=== PATIENT | female | born 1955 | race Caucasian/White ===

== ENCOUNTER 2018-12-03 10:23 | Observation (INO) ==
[2018-12-03] MEDS ORDERED: Morphine Inj 4 MG/ML Vial IV.PUSH ONE (10:41)
--- NOTE | 2018-12-03 10:48 | ED ---
HPI General Chief Complaint: Chest Pain Stated Complaint: medical Time Seen by Provider: 12/03/18 10:29 Source: patient Mode of arrival: ambulatory Limitations: no limitations History of Present Illness HPI narrative: The patient is a 63-year-old female who presents to the emergency department via private vehicle for chest pain. The patient states she was shopping earlier today when she suddenly developed left-sided chest pain that is described as heaviness, radiating to the left upper extremity , constant, and associated with nausea, diaphoresis, and shortness of breath. The patient states the pain radiates to left upper extremity and is associated with numbness and tingling. She also complains of a mild headache secondary to the chest pain. The patient states the pain has slightly improved since she arrived in the emergency department. The patient denies any history of known coronary artery disease, hypertension, diabetes, or tobacco use. The patient was advised in the past had a medical screening that she has slightly elevated cholesterol, however, was not placed on medications. The patient denies any history of pulmonary embolism or DVT. The patient denies any recent hospitalizations, travel, or surgeries. She does have a history of previous surgery for superficial veins in the right lower extremity and slightly more painful and swollen compared to the right recently. However, she denies any history of DVT. The patient denies any previous cardiac stress testing, however , does not follow-up with a physician regularly. She does have a remote history of ovarian cancer requiring total abdominal hysterectomy but is not receiving yearly mammograms or colonoscopies on schedule. MD complaint: Reports chest pain STEMI Alert: No Onset (ago): minute(s) Duration: constant Onset: during rest Pain location: Reports left chest Severity: severe Severity scale (1-10): 8 Quality: Reports heaviness Pain radiation: Reports LUE Relieving factors: nothing Exacerbating factors: nothing Associated symptoms: Reports nausea, diaphoresis and dyspnea Treatments prior to arrival chest pain: Reports none Related Data On Oral Contraceptives: No Home Medications Medication Instructions Recorded Confirmed No Known Home Medications 12/03/18 12/03/18 Allergies Allergy/AdvReac Type Severity Reaction Status Date / Time codeine Allergy Mild RASH Verified 12/03/18 10:31 *MDRO Multi-Drug Resistant Allergy Intermediate Redness of Uncoded 12/03/18 10: 31 Organism Skin Review of Systems ROS: all other systems reviewed are negative [facility] Medical History Medical History Patient denies medical problems (Acute) Social History Social History Second Hand Smoke Exposure: No Smoking Status: Never smoker How Often Do You Have a Drink Containing Alcohol: Never Recent Travel in [facility] within the Last 8 Weeks: No Recent Out of Country Travel within the Last 8 Weeks: No Immunization History Tetanus Immunization: <5 Years Exam Narrative Exam Narrative: GENERAL: Awake, alert, pleasant 63-year-old female who appears her stated age and appears slightly anxious. SKIN: Focused skin assessment warm/dry. HEAD: Atraumatic. Normocephalic. EYES: Pupils equal and round. No scleral icterus. No injection or drainage. ENT: No nasal bleeding or discharge. Mucous membranes pink and moist. NECK: Trachea midline. No JVD. CARDIOVASCULAR: Regular rate and rhythm. No murmur appreciated. Heart rate in the 90s. RESPIRATORY: No accessory muscle use. Clear to auscultation. Breath sounds equal bilaterally. GASTROINTESTINAL: Abdomen soft, non-tender, nondistended. No rebound tenderness. MUSCULOSKELETAL: No obvious deformities. No clubbing. No cyanosis. No edema. No obvious edema of the left lower extremity compared to the right, however, there are superficial varicosities bilaterally. NEUROLOGICAL: Awake and alert. No obvious cranial nerve deficits. Motor grossly within normal limits. Normal speech. PSYCHIATRIC: Appropriate mood and affect; insight and judgment normal. Course Initial Documented Vital Signs Pulse Rate 111 H 12/03/18 10:25 Respiratory Rate 22 12/03/18 10:25 Blood Pressure 187/87 H 12/03/18 10:25 Pulse Oximetry 95 12/03/18 10:25 Last Documented Vital Signs Temperature 97.7 F 12/03/18 10:27 Pulse Rate 85 12/03/18 12:28 Respiratory Rate 16 12/03/18 12:28 Blood Pressure 152/73 H 12/03/18 10:54 Pulse Oximetry 99 12/03/18 12:28 Clinical Decision Support PERC Rule Age greater than or equal to 50: Yes HR greather than or equal to 100: Yes Sa02 on room air is less than 95%: No Unilateral Leg Swelling: No Hemoptysis: No Recent Surgery or Trauma: No Prior PE or DVT: No Hormone Use: No Medical Decision Making MDM Narrative Medical decision making narrative: IV was established, labs are drawn and sent, and the patient was placed on cardiac telemetry monitoring and continuous pulse oximetry monitoring. EKG was ordered and interpreted. Chest x-ray was obtained. The patient received aspirin, Nitropaste, morphine, Zofran, and IV fluids. D-dimer was sent to lab as the patient's initial heart rate was in the 100s and she is age 63, cannot be ruled out with PERC criteria. She also complains of left lower extremity pain without obvious edema. The patient's d- dimer was negative, therefore, no indication for CT pulmonary angiogram. The patient's initial troponin was negative. Chest x-ray was unremarkable. The patient was reevaluated, her blood pressure had improved to 150s/80s. However, she complained of a persistent headache. I advised the patient her headache might possibly be worse after nitroglycerin was administered, however, she states that it has been persistent despite morphine. Therefore, noncontrast CT the brain was obtained. CT of the brain was negative. The patient will be a 23 -hour observation to the chest pain center for serial cardiac enzymes and further evaluation by cardiology. The patient may benefit from stress test, if negative, outpatient follow-up. Medical Screen Exam Complete: Yes Emergency Medical Condition: Yes Lab Data Result diagrams: 12/03/18 10:50 12/03/18 10:50 Lab Results 12/03/18 12/03/18 12/03/18 Range/Units 10:50 10:50 10:50 WBC 8.9 (4.0-11.0) th/mm3 RBC 4.90 (4.00-5.30) mil/mm3 Hgb 14.8 (11.6-15.3) gm/dL Hct 44.0 (35.0-46.0) % MCV 89.8 (80.0-100.0) fL MCH 30.1 (27.0-34.0) pg MCHC 33.5 (32.0-36.0) % RDW 14.8 (11.6-17.2) % Plt Count 365 (150-450) th/mm3 MPV 7.1 (7.0-11.0) fL Neut % (Auto) 59.1 (16.0-70.0) % Lymph % (Auto) 32.1 (9.0-44.0) % [place] % (Auto) 6.5 (0.0-8.0) % Eos % (Auto) 1.6 (0.0-4.0) % Baso % (Auto) 0.7 (0.0-2.0) % Neut # (Auto) 5.3 (1.8-7.7) th/mm3 Lymph # (Auto) 2.9 (1.0-4.8) th/mm3 [place] # (Auto) 0.6 (0.0-0.9) th/mm3 Eos # (Auto) 0.1 (0.0-0.4) th/mm3 Baso # (Auto) 0.1 (0.0-0.2) th/mm3 WBC Differential . Differential Comment Auto diff final PT 10.0 (9.8-11.6) sec INR 1.0 Ratio APTT 28.9 (23.4-31.7) sec D-Dimer Quant (PE/DVT) 0.35 (0.00-0.50) mg/L FEU Sodium 141 (136-145) meq/L Potassium 4.0 (3.5-5.1) meq/L Chloride 107 (98-107) meq/L Carbon Dioxide 25.5 (21.0-32.0) meq/L Anion Gap 9 (5-15) meq/L BUN 13 (7-18) mg/dL Creatinine 0.94 (0.50-1.00) mg/dL Estimated GFR 60 L (>89) mL/min Random Glucose 122 H (74-106) mg/dL Calcium 8.6 (8.5-10.1) mg/dL Magnesium 2.1 (1.5-2.5) mg/dL Total Bilirubin 0.4 (0.2-1.0) mg/dL AST 18 (15-37) U/L ALT 31 (10-53) U/L Alkaline Phosphatase 60 (45-117) U/L Total Creatine Kinase 107 (26-192) U/L CK-MB (CK-2) Less than 1.0 (0.5-3.6) ng/mL Troponin I Less than 0.02 L (0.02-0.05) ng/mL Total Protein 7.7 (6.4-8.2) g/dL Albumin 3.9 (3.4-5.0) g/dL Lipase 200 (73-393) U/L Imaging Data Radiologist's impression: Chest X-Ray 12/03/18 10:41 CONCLUSION: The lungs are clear. Head CT 12/03/18 12:18 CONCLUSION: No acute intracranial abnormality is identified. . ECG Data EKG Prior to Arrival: No Attestation: I personally reviewed and interpreted this ECG as follows: Interpretation: EKG reveals sinus tachycardia with a heart rate of 106. Q waves in lead III. Nonspecific T wave changes. QTc 399 ms. Discharge Plan Discharge Order Discharge Orders: ED Use Only Admit Order (Routine); Ordered 12/03/18 Ordered By: Marko Lehman Physicians Team ED Provider: Marko Lehman Primary Care Provider: Primary Care Michaeli,Tran Rxs /Orders / Referrals /Forms Prescriptions: No Action No Known Home Medications RF: 0 Discharge Interventions Interventions: Vital Signs Last Done: 12/03/18 10:27 Status ED Status: Admitted Observation Patient
[2018-12-03 11:03] LABS: Baso # (Auto) 0.1 th/mm3 (0.0-0.2); Baso % (Auto) 0.7 % (0.0-2.0); Eos # (Auto) 0.1 th/mm3 (0.0-0.4); Eos % (Auto) 1.6 % (0.0-4.0); Hemoglobin 14.8 gm/dL (11.6-15.3); Lymph # (Auto) 2.9 th/mm3 (1.0-4.8); Lymph % (Auto) 32.1 % (9.0-44.0); Mean Corpuscular HGB Conc 33.5 % (32.0-36.0); Mean Corpuscular Hemoglobin 30.1 pg (27.0-34.0); Mean Corpuscular Volume 89.8 fL (80.0-100.0); Mean Platelet Volume 7.1 fL (7.0-11.0); Mono # (Auto) 0.6 th/mm3 (0.0-0.9); Mono % (Auto) 6.5 % (0.0-8.0); Neut # (Auto) 5.3 th/mm3 (1.8-7.7); Neut % (Auto) 59.1 % (16.0-70.0); Platelet Count 365 th/mm3 (150-450); Red Cell Distribution Width 14.8 % (11.6-17.2); White Blood Count 8.9 th/mm3 (4.0-11.0)
[2018-12-03 11:16] LABS: Activated Partial Thrombo Time 28.9 sec (23.4-31.7); D-Dimer 0.35 mg/L FEU (0.00-0.50)
[2018-12-03 11:31] LABS: Alkaline Phosphatase 60 U/L (45-117); Creatine Kinase 107 U/L (26-192); Total Protein 7.7 g/dL (6.4-8.2)
[2018-12-03 11:35] LABS: Alanine Aminotransferase 31 U/L (10-53); Albumin 3.9 g/dL (3.4-5.0); Anion Gap 9 meq/L (5-15); Aspartate Aminotransferase 18 U/L (15-37); Blood Urea Nitrogen 13 mg/dL (7-18); Calcium 8.6 mg/dL (8.5-10.1); Carbon Dioxide 25.5 meq/L (21.0-32.0); Chloride 107 meq/L (98-107); Glomerular Filtration Rate 60 mL/min (>89); Glucose,Random 122 mg/dL (74-106); Lipase 200 U/L (73-393); Magnesium 2.1 mg/dL (1.5-2.5); Sodium 141 meq/L (136-145)
--- NOTE | 2018-12-03 12:28 | XR ---
EXAM DATE: 12/03/2018 12:25 PM EST AGE/SEX: 63 years / Female INDICATIONS: Chest pain, neck pain and headache CLINICAL DATA: This is the patient's initial encounter. Patient reports that signs and symptoms have been present for 1 day and indicates a pain score of 10/10. MEDICAL/SURGICAL HISTORY: None. None. COMPARISON: No prior exams available for comparison. FINDINGS: A single AP view of the chest demonstrates the lungs to be symmetrically aerated without evidence of mass, infiltrate or effusion. The cardiomediastinal contours are unremarkable. Osseous structures a re intact. CONCLUSION: The lungs are clear. Electronically signed by: Zach Davidson MD Board Certified Radiologist 12/03/2018 12:27 PM EST
--- NOTE | 2018-12-03 13:18 | CT ---
EXAM DATE: 12/03/2018 1:03 PM EST AGE/SEX: 63 years / Female INDICATIONS: Cephalgia. Chest pain radiating to left arm. Elevated blood pressure CLINICAL DATA: This is the patient's initial encounter. Patient reports that signs and symptoms have been present for 1 day and indicates a pain score of 10/10. MEDICAL/SURGICAL HISTORY: None. None. RADIATION DOSE: 35.31 CTDI (mGy) COMPARISON: No prior exams available for comparison. TECHNIQUE: CT of the head without contrast. Using automated exposure control and adjustment of the mA and/or kV according to patient size, radiation dose was kept as low as reasonably achievable to ob tain optimal diagnostic quality images. DICOM format image data is available electronically for revi ew and comparison. FINDINGS: Cerebrum: The ventricles are normal. No midline shift, mass lesion, hemorrhage or acute infarction. No extraaxial fluid collections are seen. Posterior Fossa: The cerebellum and brainstem demonstrate no acute abnormality. The 4th ventricle is midline. The cerebellopontine angle is within normal limits. Extracranial: The visualized sinuses are clear. Skull: The calvaria is intact. No skull fracture. CONCLUSION: No acute intracranial abnormality is identified. . Electronically signed by: Michael Garcia MD Board Certified Radiologist 12/03/2018 1:16 PM EST
[2018-12-03] MEDS ORDERED: ALPRAZolam 0.25 MG Tablet PO PRN (13:59)
[2018-12-03] MEDS ORDERED: Morphine Inj 4 MG/ML Vial IV.PUSH PRN (14:24)
--- NOTE | 2018-12-03 14:24 | P.HPCA ---
History of Present Illness Primary Care Physician: No Primary Care Physician Chief Complaint: Chest pain History of Present Illness: This is a 63-year-old female with history of borderline hyperlipidemia that presents to ED via private vehicle with complaint of chest discomfort. Patient states she developed a tightness across her lower chest while she was doing some shopping at a craft store this morning. She was short of breath, nauseous , and diaphoretic. She felt dizzy. Pain scale at its worse level was an 8 out of 10, currently 3 out of 10. States that she decided to go back to the car. While doing that she felt nauseous and went into [employer] thinking she was going to have to go to the bathroom to vomit. The dizziness began to worsen and she caught herself from falling by leaning against the wall doing so struck her head. There is no loss of consciousness. She did not fall any further. She is already having a headache but her headache worsened afterwards. She was given IV morphine and nitroglycerin ointment which has helped with her chest discomfort however her headache is still present. Denies weakness in extremities. Denies visual changes. Denies neck stiffness. Denies fevers or chills. Patient also states that over the last couple weeks her blood pressure and heart rate has seem to be a little higher than usual. Usually blood pressure runs in the 120s but recently it has been in the 140s and use her heart rate is in the 60s or 70s and it had been up to about 100 at home. Cannot recall recent stress testing. States that she has history of borderline hyperlipidemia but never medicated. Denies history of hypertension, diabetes, and CAD. Denies family history of CAD. Lifetime non-smoker. She cares for her who has had multiple strokes. - Diagnosis (1) Chest pain (2) Hyperlipidemia (3) Headache Review of Systems General: Patient denies fevers, chills, and recent travel. HEENT: Patient denies sore throat and difficulty swallowing. Cardiovascular: Has the chest discomfort as mentioned above. States heart rate has been elevated recently to about 100 which she states is unusual for her. No syncope. She was diaphoretic. Respiratory: She was short of breath. Denies inspirational chest discomfort. Denies coughing wheezing or hemoptysis. GI: She was nauseous. Patient denies vomiting, diarrhea, constipation, abdominal pain, and bloody stools. Musculoskeletal: Patient denies joint pain or edema. Denies calf pain or edema. Neurovascular: Patient denies numbness, tingling, weakness in extremities. Complains of headache. Not described as the worst headache of her life. Endocrine: Denies polyuria and polydipsia. Hematologic: Denies easy bruising. Skin: Denies rash or itching. PMFSH - History History Provided By: Patient - Medical History Medical History: Medical History (Last Updated 12/03/18 @ 10:26 by Isabel Hurley RN) Patient denies medical problems - Tobacco History Second Hand Smoke Exposure: No Smoking Status: Never smoker - Alcohol History How Often Do You Have a Drink Containing Alcohol: Never - Travel History Recent Travel in the [place] Within the Last 8 Weeks: No Recent Travel Out of the Country Within the Last 8 Weeks: No - Immunization History Tetanus Immunization: <5 Years Medications and Allergies Active Medications: Active Medications Acetaminophen (Tylenol) 500 mg PO Q6H PRN PRN Reason: pain scale 1-5 Alprazolam (Xanax) 0.25 mg PO Q8H PRN PRN Reason: ANXIETY Aspirin (Aspirin) 325 mg PO DAILY DAVON Clonidine HCl (Catapres) 0.1 mg PO Q6H PRN PRN Reason: SBP >165 OR DBP > 110 Clonidine HCl (Catapres) 0.1 mg PO Q6H PRN PRN Reason: SBP >165 OR DBP > 110 Ondansetron HCl (Zofran Inj) 4 mg IV.PUSH Q6H PRN PRN Reason: NAUSEA Pantoprazole Sodium (Protonix) 40 mg PO DAILY DAVON Sodium Chloride (Ns Flush) 2 ml IV.FLUSH UNSCH PRN PRN Reason: FLUSH AFTER USING IV ACCESS Last Admin: 12/03/18 10:48 Dose: 2 ml Sodium Chloride (Ns Flush) 2 ml IV.FLUSH BID DAVON Sodium Chloride (Ns Flush) 2 ml IV.FLUSH PRN PRN PRN Reason: FLUSH AFTER USING IV ACCESS Allergies Allergy/AdvReac Type Severity Reaction Status Date / Time codeine Allergy Mild RASH Verified 12/03/18 10:31 *MDRO Multi-Drug Resistant Allergy Intermediate Redness of Uncoded 12/03/18 10: 31 Organism Skin Home Medications Medication Instructions Recorded Confirmed Type No Known Home Medications 12/03/18 12/03/18 History Exam Vital signs: Vital Signs 12/03/18 10:25 12/03/18 10:27 12/03/18 10:54 Temperature 97.7 F Pulse Rate 111 H 94 H 89 Respiratory Rate 22 22 18 Blood Pressure 187/87 H 152/73 H Pulse Oximetry 95 95 99 12/03/18 12:28 Temperature Pulse Rate 85 Respiratory Rate 16 Blood Pressure Pulse Oximetry 99 Intake & Output 12/02/18 12/03/18 12/03/18 18:59 06:59 18:59 Weight 104.326 kg Narrative: GENERAL: This is a well-nourished, well-developed patient, in no apparent distress. Patient speaks in clear complete sentences. Patient is pleasant. HEENT: Head is atraumatic and normocephalic. Neck is supple without lymphadenopathy and trachea is midline. No JVD or carotid bruits. CARDIOVASCULAR: Regular rate and rhythm without murmurs, gallops, or rubs. RESPIRATORY: Clear to auscultation. Breath sounds equal bilaterally. No wheezes , rales, or rhonchi. Chest wall is nontender. No use of accessory muscles. GASTROINTESTINAL: Abdomen is nontender, nondistended. Abdomen soft. No obvious pulsatile mass or bruit. No CVA tenderness. Strong femoral pulses bilaterally. Normal bowel sounds in all quadrants. MUSCULOSKELETAL: Patient is moving upper and lower extremities freely. No calf tenderness or edema, no Homans sign. Strong pulses in upper and lower extremities. NEUROLOGICAL: Patient is alert and oriented. Cranial nerves 2-12 are grossly intact. No focal deficits and speech is clear. SKIN: No rash and turgor is normal. Results 12/03/18 10:50 12/03/18 10:50 Cardiac Enzymes 12/03/18 Range/Units 10:50 AST 18 (15-37) U/L CK-MB (CK-2) Less than 1.0 (0.5-3.6) ng/mL Troponin I Less than 0.02 L (0.02-0.05) ng/mL Coagulation 12/03/18 Range/Units 10:50 PT 10.0 (9.8-11.6) sec APTT 28.9 (23.4-31.7) sec CBC 12/03/18 Range/Units 10:50 WBC 8.9 (4.0-11.0) th/mm3 RBC 4.90 (4.00-5.30) mil/mm3 Hgb 14.8 (11.6-15.3) gm/dL Hct 44.0 (35.0-46.0) % Plt Count 365 (150-450) th/mm3 Neut # (Auto) 5.3 (1.8-7.7) th/mm3 Lymph # (Auto) 2.9 (1.0-4.8) th/mm3 [place] # (Auto) 0.6 (0.0-0.9) th/mm3 Eos # (Auto) 0.1 (0.0-0.4) th/mm3 Baso # (Auto) 0.1 (0.0-0.2) th/mm3 Comprehensive Metabolic Panel 12/03/18 Range/Units 10:50 Sodium 141 (136-145) meq/L Potassium 4.0 (3.5-5.1) meq/L Chloride 107 (98-107) meq/L Carbon Dioxide 25.5 (21.0-32.0) meq/L BUN 13 (7-18) mg/dL Creatinine 0.94 (0.50-1.00) mg/dL Calcium 8.6 (8.5-10.1) mg/dL AST 18 (15-37) U/L ALT 31 (10-53) U/L Alkaline Phosphatase 60 (45-117) U/L Total Protein 7.7 (6.4-8.2) g/dL Albumin 3.9 (3.4-5.0) g/dL Intake and Output 12/02/18 12/03/18 12/03/18 22:59 06:59 14:59 Other: Weight 104.326 kg Patient Weight 12/04/18 06:59 Weight 104.326 kg - Imaging and Cardiology Imaging: Impressions Chest X-Ray 12/03/18 10:41 CONCLUSION: The lungs are clear. Head CT 12/03/18 12:18 CONCLUSION: No acute intracranial abnormality is identified. . EKG interpretations - EKG EKG shows: tachycardia (Initial EKG sinus tachycardia rate of [address] segment depressions or elevations.) Caprini VTE Risk Assessment Caprini VTE Risk Assessment: Moderate/High Risk (score >= 2) Caprini Risk Assessment Model: Point Value = 1 Point Value = 2 Point Value = 3 Point Value = 5 Age 41-60 Minor surgery BMI > 25 kg/m2 Swollen legs Varicose veins or History of unexplained or recurrent spontaneous Oral contraceptives or hormone replacement Sepsis (< 1 month) Serious lung disease, including pneumonia (< 1 month) Abnormal pulmonary function Acute myocardial infarction Congestive heart failure (< 1 month) History of inflammatory bowel disease Medical patient at bed rest Age 61-74 Arthroscopic surgery Major open surgery (> 45 min) Laparoscopic surgery (> 45 min) Malignancy Confined to bed (> 72 hours) Immobilizing plaster cast Central venous access Age >= 75 History of VTE Family history of VTE Factor V Leiden Prothrombin [id number] Lupus anticoagulant Anticardiolipin antibodies Elevated serum homocysteine Heparin-induced thrombocytopenia Other congenital or acquired thrombophilia Stroke (< 1 month) Elective arthroplasty Hip, pelvis, or leg fracture Acute spinal cord injury (< 1 month) Prophylaxis Regimen: Total Risk Factor Score Risk Level Prophylaxis Regimen 0-1 Low Early ambulation 2 Moderate Order ONE of the following: *Sequential Compression Device (SCD) *Heparin 5000 units SQ BID 3-4 Higher Order ONE of the following medications: *Heparin 5000 units SQ TID *Enoxaparin/Lovenox 40 mg SQ daily (WT < 150 kg, CrCl > 30 mL/min) *Enoxaparin/Lovenox 30 mg SQ daily (WT < 150 kg, CrCl > 10-29 mL/min) *Enoxaparin/Lovenox 30 mg SQ BID (WT < 150 kg, CrCl > 30 mL/min) AND/OR *Sequential Compression Device (SCD) 5 or more Highest Order ONE of the following medications: *Heparin 5000 units SQ TID (Preferred with Epidurals) *Enoxaparin/Lovenox 40 mg SQ daily (WT < 150 kg, CrCl > 30 mL/min) *Enoxaparin/Lovenox 30 mg SQ daily (WT < 150 kg, CrCl > 10-29 mL/min) *Enoxaparin/Lovenox 30 mg SQ BID (WT < 150 kg, CrCl > 30 mL/min) AND *Sequential Compression Device (SCD) Assessment and Plan - Assessment (1) Chest pain Code(s): R07.9 - Chest pain, unspecified Status: Acute (2) Hyperlipidemia Code(s): E78.5 - Hyperlipidemia, unspecified Status: Acute (3) Headache Code(s): R51 - Headache Status: Acute - Plan * Chest pain: Patient will continue to have serial cardiac enzymes and EKGs for ruling out purposes. She will be seen by Dr. Yash March of cardiology in the chest pain center in the morning. Patient will likely have a Lexiscan in the morning if she rules out. Patient will be discharged home if her stress test is nonischemic with instructions to follow-up with PCP. Return to ED for interval issues. * Headache: CT brain has no acute findings. Will provide analgesia. * Hyperlipidemia: She is discussed with PCP management of hyperlipidemia. Patient is stable at this time. She is agreeable to this plan. (1) Chest pain Qualifiers: Chest pain type: unspecified Qualified Code(s): R07.9 - Chest pain, unspecified
[2018-12-03 15:36] LABS: Creatine Kinase 89 U/L (26-192)
[2018-12-03] MEDS: Acetaminophen 500 MG Tablet PO PRN (16:25)
[2018-12-03] MEDS: Sod Chloride 0.9% Inj 1,000 ML IV.CONT SCH (16:27)
[2018-12-03 19:03] LABS: Creatine Kinase 70 U/L (26-192)
[2018-12-04] MEDS: Sod Chloride 0.9% Inj 1,000 ML IV.CONT SCH ×2 (01:22→10:54)
--- NOTE | 2018-12-04 07:31 | ECG ---
Date Performed: 12/03/2018 Time Performed: 16:39:58 PTAGE: 63 years EKG: Sinus rhythm NORMAL ECG PREVIOUS TRACING : 12/03/2018 14.27 Since previous tracing, no significant change noted DOCTOR: Yash March Interpretating Date/Time 12/04/2018 07:31:05
--- NOTE | 2018-12-04 07:31 | ECG ---
Date Performed: 12/03/2018 Time Performed: 14:27:45 PTAGE: 63 years EKG: Sinus rhythm NORMAL ECG PREVIOUS TRACING : 12/03/2018 10.27 Since previous tracing, no significant change noted DOCTOR: Yash March Interpretating Date/Time 12/04/2018 07:31:15
--- NOTE | 2018-12-04 07:57 | ECG ---
Date Performed: 12/03/2018 Time Performed: 10:27:07 PTAGE: 63 years EKG: SINUS TACHYCARDIA ABNORMAL RHYTHM ECG INTERPRETATION BASED ON A DEFAULT AGE OF 40 YEARS NO PREVIOUS TRACING DOCTOR: Yash March Interpretating Date/Time 12/04/2018 07:55:00
[2018-12-04 07:59] VITALS: BP 140/73; RESP 16; TEMP 98; O2SAT 100
[2018-12-04] MEDS ORDERED: Regadenoson Inj 0.4 MG/5 ML Syringe IV.PUSH ONE (08:00)
[2018-12-04] MEDS ORDERED: Aspirin 325 MG Tablet PO SCH (09:00)
[2018-12-04] MEDS: Acetaminophen 500 MG Tablet PO PRN (10:39)
--- NOTE | 2018-12-04 10:56 | NM ---
EXAM DATE: 12/04/2018 10:32 AM EST AGE/SEX: 63 years / Female INDICATIONS:Angina. . Chest discomfort with dypnea, nausea, dizziness and diaphoresis. CLINICAL DATA: This is the patient's initial encounter. Patient reports that signs and symptoms have been present for 1 day and indicates a pain score of 3/10. MEDICAL/SURGICAL HISTORY: None. None. COMPARISON: No prior exams available for comparison. DOSE: 11 mCi Tc 99m Myoview at rest 35 mCi [id number] at stress 0.4 mg Lexiscan STRESS SYMPTOMS: Midchest pain, nausea and short of breath. EJECTION FRACTION: 67 % TECHNIQUE: The patient underwent pharmacologic stress with infusion of prescribed dose. Continuous ECG tracing was monitored during stress. Gated SPECT imaging was performed after stress and conventi onal SPECT imaging was performed at rest. The examination was performed on a SPECT/CT scanner, both attenuation and non-corrected datasets were reviewed. FINDINGS: Distribution: The maximum perfused segment at stress is in the anterolateral wall. Perfusion Study: The pattern of perfusion at stress demonstrates reduction in perfusion to anterior wall which is fixed with the rest and parts of the posterior basal wall without any significant isch emia probably due to breast attenuation and diaphragmatic attenuation artifact . Gated Study: There are intact wall motion and wall thickening without hypokinetic or dyskinetic segm ents. The ejection fraction is calculated at 67%. RISK CATEGORY: Low (<1% Annual Mortality Rate) CONCLUSION: 1. No appreciable ischemia. Electronically signed by: Sherwin Helm MD Board Certified Radiologist 12/04/2018 10:55 AM EST
[2018-12-04 15:03] VITALS: PULSE 81
--- NOTE | 2018-12-05 14:51 | TR ---
Date Performed: 12/04/2018 Time Performed: 09:01:18 DOCTOR: Alexis Mane DRUG LIST: CLINICAL HISTORY: REASON FOR TEST: REASON FOR ENDING: OBSERVATION: CONCLUSION: COMMENTS: Lexiscan stress test was performed under standard four minute protocol. Radionuclide was injected one minute prior to ending the test. No electrocardiographic abormalities were present t o suggest ischemia. Nuclear imaging and interpretation are pending.
== END 2018-12-04 11:48 | disposition home or self-care (01) ==
LOC: NEDA 10:23 → NEPC 10:23 → NEPFCDU 14:56
PROVIDERS: ADMIT Emergency Medicine; ATTEND Emergency Medicine
DX: W19.XXXA Unspecified fall, initial encounter; R51 Headache; Z16.24 Resistance to multiple antibiotics; Z88.5 Allergy status to narcotic agent; E78.00 Pure hypercholesterolemia, unspecified; R42 Dizziness and giddiness; R07.89 Other chest pain; Z90.710 Acquired absence of both cervix and uterus; R94.31 Abnormal electrocardiogram [ECG] [EKG]; E78.5 Hyperlipidemia, unspecified; M54.2 Cervicalgia; Z85.43 Personal history of malignant neoplasm of ovary
CPT/HCPCS: 70450; 71010; 71045; 78452; 80053; 82550; 82552; 83690; 83735; 84484; 85025; 85379; 85610; 85730; 90774; 90775; 90784; 93005; 93017; 96361; 96374; 96375; 99285; A9502; C8952; G0378; J2270; J2405; J2785; J7030; Q9969